=== PATIENT | female | born 1980 | race Caucasian/White ===

== ENCOUNTER 2018-08-23 18:30 | Emergency (ER) | payer BC, SELFPAY ==
[2018-08-23 18:31] VITALS: BP 134/87; PULSE 89; RESP 19; TEMP 36.7; O2SAT 99; BMI 28.8
[2018-08-23 19:50] LABS: Absolute Lymphocyte Count 2.92 X10^3/ul (0.83-4.51); Absolute Neutrophil Count 4.6 X10^3/uL (2.0-7.7); Basophil# 0.02 X10^3/uL; Basophil% 0.2 % (0-1); Eosinophil# 0.18 X10^3/uL; Eosinophils% 2.2 % (0-5); Hematocrit 46.1 % (37-47); Hemoglobin 15.9 g/dl (12.0-15.0); Lymphocyte # 2.92 X10^3/ul (4.0); Lymphocyte % 35.1 % (19-41); Mean Corp Hgb Conc 34.5 g/gl (32-36); Mean Corpuscular Hgb 32.7 pg (27.0-32.0); Mean Corpuscular Volume 94.9 fL (81-99); Mean Platelet Vol. 8.9 fl (6.2-12.0); Monocyte# 0.62 X10^3/uL; Monocyte% 7.5 % (0-10); Neutrophil # 4.56 X10^3/uL (2.7-7.7); Neutrophil % 54.9 % (47-70); POSITIVE COUNT NO; POSITIVE DIFFERENTIAL NO; POSITIVE MORPHOLOGY NO; Platelet Count 383 K/mm3 (150-450); RBC Distribution Width CV 13.6 % (11.6-14.6); RBC Distribution Width SD 46.7 fl (35.1-43.9); Red Blood Count 4.86 M/mm3 (4.2-5.4); White Blood Count 8.3 K/mm3 (4.4-11.0)
[2018-08-23 20:00] LABS: Red Blood Cells-Urine 0 SEEN /hpf (0-5)
[2018-08-23 20:01] LABS: Internal QC Validated? YES +Cl - CLEAR BKGD; Pregnancy, Serum, hCG Quali. NEGATIVE Negative
[2018-08-23 20:06] LABS: Color, Urine Yellow (Yellow); Glucose, Dipstick Normal (Normal); Leukocyte Esterase-Dipstick 500 /ul (Negative); Nitrite-Dipstick Positive (Negative); Occult Blood-Urine 25 /ul (Negative); Protein-Dipstick 30 mg/dl (Negative); Specific Gravity, Urine 1.025 (1.002-1.030); Urine Clarity Clear (Clear); Urine Urobilinogen 1 mg/dl (Normal)
[2018-08-23 20:09] LABS: Anion Gap 4 (5-15); BUN 14 mg/dL (7-18); BUN/Creat Ratio 15.6 RATIO (10-20); Calcium,Total 8.8 mg/dL (8.5-10.1); Chloride 108 mmol/L (98-107); EST Glomerular Filtration Rate 75 mL/min (>60); Est Glom Filt Rate - Afr Amer 91 mL/min (>60); Estimated Creatinine Clearance 86.33 ml/min; Glucose 79 mg/dL (74-106); Potassium 3.5 mmol/L (3.5-5.1); Sodium Level 138 mmol/L (136-145)
--- NOTE | 2018-08-23 20:09 | CT_ITS ---
STUDY: CT ABDOMEN AND PELVIS WITH CONTRAST REASON FOR EXAM: Female, 38 years old. Lower abdominal pain RADIATION DOSAGE (If Supplied By Facility): CTDIvol = ( 14.55 ) mGy, DLP = ( 1070.31 ) mGycm TECHNIQUE: Transaxial images were obtained from the dome of the diaphragm to the symphysis pubis without oral contrast. 100 IV/Oral Isovue 300 was administered. Sagittal and coronal images were reconstructed. Individualized dose optimization techniques were used for this CT. COMPARISON: None. FINDINGS: There is a calcified granuloma in the right lung base. The visualized portions of the heart are within normal limits. Normal liver. Normal gallbladder and extrahepatic biliary system. There are multiple benign calcified granulomata of the spleen. Normal pancreas. Normal bilateral adrenal glands. Normal right kidney. Normal left kidney. Normal visualized stomach. Normal small intestine. There is mild to moderate stool within the colon. The appendix is visualized and appears normal. Normal abdominal aorta. Normal inferior vena cava. Normal retroperitoneum. Normal urinary bladder. Normal visualized uterus. There is a left side nabothian cyst suggested at the cervix. There is a small right ovarian cyst measuring 1 cm. There is a small umbilical hernia containing fat. There is a broad disc bulge moderate neural foramina narrowing mild central stenosis. CT/Abdomen/Pelvis WITH Contrast IMPRESSION: Evidence of old granulomatous disease. Mild constipation. No evidence of hydronephrosis. No evidence of appendicitis. Small amount appearing right ovarian cyst. Electronically Signed: Francisca Crews MD at 22:20 EDT Tel , Service support ,
--- NOTE | 2018-08-23 20:12 | ED.DCSUM_ITS ---
- ER Visit Summary Date of Service: 08/23/18 Chief Complaint: Abdominal pain History of Present Illness: The patient is a 38 F presenting with abdominal pain. Patient states this started last night. States initially pain was diffuse in her lower abdomen. She states throughout the day it has been more on her right lower side. She has nausea with no vomiting. She has had decreased appetite today. She has had loose stool. Denies urinary complaints. Denies fever. Denies other complaints. Physical Examination: Vitals are stable. Patient is afebrile. Alert no acute distress. HEENT exam is unremarkable. Neck is supple. Lungs are clear and equal bilaterally. Heart is regular rate and rhythm. Abdomen is soft right lower quadrant tenderness with no rebound or guarding Extremities are unremarkable. Skin is warm and dry. Remainder of exam is unremarkable. Emergency Department Course and Treatment: Patient was given Zofran IV. CBC, chemistries unremarkable. Urinalysis shows over 100 white blood cells, 2+ bacteria. hCG negative. CT abdomen pelvis shows evidence of old granulomatous disease, mild constipation, no evidence of hydronephrosis, no evidence of appendicitis, small right ovarian cyst. On reevaluation, patient is resting comfortably. She is given Keflex and a prescription for Keflex. She is advised to follow-up with her primary care physician. Advised to return to the ED for worsening complaints. Disposition: Discharge home Impression: Abdominal pain, UTI This note was generated with [employer] dictation software. It may contain incorrect words, spelling, and punctuation that were not noted in review of the chart prior to signing ED Disposition - Plan for ED Patient: Instructions: ED UTI Cystitis Female Prescriptions: Cephalexin [Keflex] 500 mg PO Q12 #14 capsule Referrals: Jose Luis Ren MD [Primary Care Provider] -
[2018-08-23] MEDS: Ondansetron 4 MG/2 ML Vial IV (20:18)
[2018-08-23 20:22] LABS: Urine Bilirubin Dipstick 1 mg/dL (Negative)
[2018-08-23 20:23] LABS: Ketone-Dipstick 150 mg/dl (Negative)
[2018-08-23 20:40] LABS: White Blood Cells >100 SEEN /hpf (0-5)
[2018-08-23 20:41] LABS: Bacteria 2+ /hpf (None Seen); Mucous, Urine 1+ /hpf (<or=2+); Squamous Epithelial Cells - UA 0-5 SEEN /hpf (5-10)
[2018-08-23 21:06] VITALS: PULSE 88; RESP 16; O2SAT 100
--- NOTE | 2018-08-23 22:45 | ED.DEP ---
ED Disposition - Plan for ED Patient: Instructions: ED UTI Cystitis Female Prescriptions: Cephalexin [Keflex] 500 mg PO Q12 #14 capsule Referrals: Jose Luis Ren MD [Primary Care Provider] -
[2018-08-23 22:54] VITALS: BP 132/86; PULSE 84; RESP 16; O2SAT 98
[2018-08-23] MEDS: Cephalexin 250 MG Capsule 500 MG PO (22:59)
== END 2018-08-23 23:04 | disposition home or self-care (01) ==
LOC: ED 20:05
PROVIDERS: Emergency Provider Emergency Medicine; Family Provider Family Medicine; PCP Family Medicine
DX: N39.0 Urinary tract infection, site not specified (principal); Z72.0 Tobacco use
CPT/HCPCS: 74177; 80048; 81001; 84703; 85025; 96374; 99285; Q9967; A4216; J2405